=== PATIENT | male | born 1990 | race Caucasian/White ===

== ENCOUNTER 2019-12-08 14:03 | Inpatient (IN) | payer OTHER ==
[~2019-12-08] VITALS: Ht 172.7 cm; Wt 77.0 kg
[2019-12-08 15:42] LABS: BASOPHILS % (AUTO) 0.8 % (0.0-2.0); EOSINOPHILS % (AUTO) 1.3 % (1.0-6.0); HEMATOCRIT 46.2 % (41-53); HEMOGLOBIN 15.6 g/dL (13.5-17.5); LYMPHOCYTES # (AUTO) 1.7 K/uL (1.0-4.8); LYMPHOCYTES % (AUTO) 33.7 % (22.0-44.0); MEAN CORPUSCULAR HEMOGLOBIN 31.1 pg (26.0-34.0); MEAN CORPUSCULAR HGB CONC 33.8 G/dL (31.0-37.0); MEAN CORPUSCULAR VOLUME 92 fL (80-100); MONOCYTES # (AUTO) 0.2 K/uL (0.1-1.0); MONOCYTES % (AUTO) 4.7 % (2.0-9.0); NEUTROPHILS % (AUTO) 59.5 % (40.0-70.0); PLATELET COUNT (AUTO) 211 K/uL (150-450); RED BLOOD CELL COUNT(AUTO) 5.03 MIL/uL (4.50-5.90); RED CELL DISTRIBUTION WIDTH 13.2 % (11.5-14.5)
[2019-12-08 16:04] LABS: ANION GAP 10 mmol/L (8-16); CALCIUM, TOTAL 8.8 mg/dL (8.8-10.5); CARBON DIOXIDE 26 mmol/L (22-29); CHLORIDE 101 mmol/L (98-107); CREATININE 1.25 mg/dL (0.60-1.30); GLOMERULAR FILTR. RATE CALC > 60 mL/min (>60); GLUCOSE,RANDOM 292 mg/dL (70-110); SODIUM SERUM 137 mmol/L (136-145); UREA NITROGEN, BLOOD 13 mg/dL (7-18)
[2019-12-08 16:11] LABS: ALANINE AMINOTRANSFERASE 31 U/L (12-78); ALBUMIN 4.3 g/dL (3.4-5.0); ALKALINE PHOSPHATASE 59 U/L (46-116); ASPARTATE AMINOTRANSFERASE 37 U/L (15-37); BILIRUBIN,TOTAL 0.5 mg/dL (0.1-1.0); TOTAL PROTEIN, SERUM 7.8 g/dL (6.4-8.2)
[2019-12-08 18:00] VITALS: BP 148/85
[2019-12-08] MEDS ORDERED: PROMETHAZINE HCL 25 MG TABLET PO PRN (18:45)
[2019-12-08] MEDS ORDERED: MAG HYDROX/AL HYDROX/SIMETH ES 30 ML SUSPENSION UDCUP PO PRN (18:45)
[2019-12-08] MEDS ORDERED: LOPERAMIDE HCL 2 MG CAPSULE PO PRN (18:45)
[2019-12-08] MEDS ORDERED: QUEtiapine FUMARATE 100 MG TABLET PO PRN (18:45)
[2019-12-08] MEDS ORDERED: HydrOXYzine PAMOATE 50 MG CAPSULE PO PRN (18:45)
[2019-12-08] MEDS ORDERED: MAGNESIUM HYDROXIDE SUSPENSION 30 ML UDCUP PO PRN (18:45)
[2019-12-08] MEDS ORDERED: ACETAMINOPHEN 325 MG TABLET PO PRN (18:45)
[2019-12-08] MEDS ORDERED: TUBERCULIN, PURIFIED PROTEIN DERIVATIVE 5 TU/0.1 ML SYRINGE ID ONE (18:45)
[2019-12-08] MEDS ORDERED: LORazepam 2 MG TABLET PO PRN (18:45)
[2019-12-08] MEDS ORDERED: GuaiFENesin/D-METHORPHAN [SUGAR-FREE] 200-20MG/10 ML SYRUP UDCUP PO PRN (18:45)
[2019-12-08] MEDS: ZOLPIDEM TARTRATE 10 MG TABLET PO PRN (20:46)
[2019-12-08] MEDS ORDERED: DEXTROSE 50%-WATER 25 GM/50 ML SYRINGE IVP PRN (21:45)
[2019-12-08] MEDS: LevETIRAcetam 500 MG TABLET PO SCH (21:47)
[2019-12-08] MEDS: INSULIN LISPRO 100 UNITS/ML SQ PRN (21:54)
[2019-12-08 22:06] LABS: GLUCOMETER DEV NAME(LOC) 3E.I 2; GLUCOSE,POINT OF CARE 280 MG/DL (70-110)
[2019-12-09] MEDS ORDERED: PNEUMOCOCCAL VACCINE POLYVALENT 0.5 ML VIAL [PPSV23] IM ONE (03:45)
[2019-12-09 04:50] VITALS: BP 137/84
[2019-12-09 05:44] LABS: GLUCOMETER DEV NAME(LOC) 3E.I 2; GLUCOSE,POINT OF CARE 229 MG/DL (70-110)
[2019-12-09] MEDS: INSULIN LISPRO 100 UNITS/ML SQ PRN ×4 (06:34→20:15)
[2019-12-09 07:16] LABS: HEMOGLOBIN A1C 8.3 % (3.8-5.6)
[2019-12-09 07:31] LABS: CHOL/HDL RATIO 2.8 (4.2-7.3)
[2019-12-09 07:32] LABS: FREE T4 (FREE THYROXINE) 0.89 ng/dL (0.76-1.46); THYROID STIMULATING HORMONE 2.06 uIU/mL (0.36-3.74)
[2019-12-09 08:00] VITALS: BP 151/81
[2019-12-09] MEDS: MULTIVITAMINS WITH MINERALS, THERAPEUTIC TABLET PO SCH (10:08)
[2019-12-09] MEDS: FLUoxetine HCL 20 MG CAPSULE PO SCH (10:08)
[2019-12-09] MEDS: LevETIRAcetam 500 MG TABLET PO SCH ×2 (10:08→16:35)
[2019-12-09] MEDS: THIAMINE 100 MG TABLET PO SCH ×2 (10:08→16:35)
[2019-12-09] MEDS: FOLIC ACID 1 MG TABLET PO SCH (10:08)
[2019-12-09] MEDS: NALTREXONE HCL 50 MG TABLET PO SCH (10:08)
[2019-12-09 12:10] LABS: GLUCOMETER DEV NAME(LOC) 3E.I 2; GLUCOSE,POINT OF CARE 262 MG/DL (70-110)
[2019-12-09 16:00] VITALS: BP 150/90
[2019-12-09 16:45] LABS: GLUCOMETER DEV NAME(LOC) 3E.I 2; GLUCOSE,POINT OF CARE 309 MG/DL (70-110)
[2019-12-09] MEDS ORDERED: NALT50TA PO (19:14)
[2019-12-09] MEDS ORDERED: FLUO-191 PO (19:14)
[2019-12-09] MEDS ORDERED: LEVE500T53 PO (19:14)
[2019-12-09 20:24] LABS: GLUCOMETER DEV NAME(LOC) 3E.I 2; GLUCOSE,POINT OF CARE 177 MG/DL (70-110)
[2019-12-09] MEDS ORDERED: INSULIN GLARGINE,HUM.REC.ANLOG 100 UNITS/ML SQ SCH (21:00)
[2019-12-09] MEDS: ZOLPIDEM TARTRATE 10 MG TABLET PO PRN (21:03)
[2019-12-10 03:32] LABS: GLUCOMETER DEV NAME(LOC) 3E.I 2; GLUCOSE,POINT OF CARE 40 MG/DL (70-110)
[2019-12-10 03:50] LABS: GLUCOMETER DEV NAME(LOC) 3EX.; GLUCOSE,POINT OF CARE 91 MG/DL (70-110)
[2019-12-10 06:30] LABS: GLUCOMETER DEV NAME(LOC) 3E.I 2; GLUCOSE,POINT OF CARE 149 MG/DL (70-110)
[2019-12-10] MEDS: INSULIN LISPRO 100 UNITS/ML SQ PRN ×2 (06:38→11:18)
[2019-12-10] MEDS: NALTREXONE HCL 50 MG TABLET PO SCH (08:12)
[2019-12-10] MEDS: FOLIC ACID 1 MG TABLET PO SCH (08:13)
[2019-12-10] MEDS: MULTIVITAMINS WITH MINERALS, THERAPEUTIC TABLET PO SCH (08:14)
[2019-12-10] MEDS: THIAMINE 100 MG TABLET PO SCH (08:14)
[2019-12-10] MEDS: LevETIRAcetam 500 MG TABLET PO SCH (08:14)
[2019-12-10] MEDS: FLUoxetine HCL 20 MG CAPSULE PO SCH (09:00)
[2019-12-10] MEDS ORDERED: INSLAN SQ (10:26)
[2019-12-10 12:02] LABS: GLUCOMETER DEV NAME(LOC) 3E.I 2; GLUCOSE,POINT OF CARE 107 MG/DL (70-110)
[2019-12-11] MEDS ORDERED: INSULIN GLARGINE,HUM.REC.ANLOG 100 UNITS/ML SQ SCH (08:00)
== END 2019-12-10 12:40 | disposition home or self-care (01) | DRG 885 ==
LOC: EMS 14:05 → 3EI 16:26
PROVIDERS: ADMIT Psychiatry & Neurology Psychiatry; ATTEND Psychiatry & Neurology Psychiatry
DX: F25.9 Schizoaffective disorder, unspecified (principal); E10.65 Type 1 diabetes mellitus with hyperglycemia; R45.851 Suicidal ideations; F17.210 Nicotine dependence, cigarettes, uncomplicated; Z79.4 Long term (current) use of insulin; Z91.19 Patient's noncompliance with other medical treatment and regimen
CPT/HCPCS: 83036; 84439; 84443; 86592; 93005; G0480; J1815